=== PATIENT | male | born 1965 | race African-American/Black ===

== ENCOUNTER 2017-10-28 05:36 | Inpatient (IN) | payer MEDICAID ==
[~2017-10-28] VITALS: Ht 165.1 cm; Wt 95.2 kg
[2017-10-28] VITALS (16 sets, daily range): BP systolic 116–183; BP diastolic 70–103; BMI 26.6; BMI 26.7
--- NOTE | ~2017-10-28 | HP ---
PATIENT: MATT NAIDU MEDICAL RECORD: [id number] ACCOUNT: [id number] LOCATION:[facility] D.2308 : 63 ADMISSION DATE: 10/28/17 HISTORY AND PHYSICAL EXAMINATION HISTORY OF PRESENT ILLNESS: The patient has an esophageal sphincter that is hypertonic and suspicious for achalasia. The patient has dysphagia at the level of the cricopharyngeus. He is here for balloon dilation of the lower esophageal sphincter as this is currently unavailable at the [facility] unit. I performed an upper endoscopy. I felt that bougie dilation of this tight stricture would perhaps predispose the patient to have an esophageal perforation. He describes volume reflux type symptoms. He states that despite the omeprazole, he regurgitates up in the back of his throat. He describes some aspiration type symptoms. He states that the food comes out through his nose as well. This may require an antireflux procedure; however, it may be that the food material is not passing through this tight strictured area, so esophageal dilation may improve this reflux of solid and liquid food material. ALLERGIES: No known drug allergies. HOME MEDICINES: Metoprolol, chlorthalidone, omeprazole, albuterol, amlodipine, statins as well as Cozaar. REVIEW OF SYSTEMS: Negative for hepatitis C. Negative for HIV. Negative for diabetes or thyroid problems. PAST MEDICAL AND SURGICAL HISTORY: Asthma, hypertension, gastroesophageal reflux and hyperlipidemia. PHYSICAL EXAMINATION: GENERAL: The patient does not appear acutely ill. He does not appear chronically ill. VITAL SIGNS: Reviewed. EARS: External ears appear normal. EYES: Extraocular movements are intact. NECK: Trachea is midline. CHEST: No intercostal retractions. PULMONARY: Nonlabored and no stridor. IMPRESSION: 1. Volume reflux symptoms. 2. Distal esophageal stricture, suspicious for achalasia. PLAN: EGD with esophageal dilation. TRANSINT:[id number] Voice Confirmation ID: [id number] DOCUMENT ID: [id number] HISTORY AND PHYSICAL [id number] MATT NAIDU, TALYA GRIFFIN at 1746 CC: FIGUEROA GONZALEZ APN and LUZ COLORADO [id number] DICTATION DATE: 10/28/17 0801 CASE MONITOR: 10/28/17 1009 ADM IN [place] [id number] [place], [place] [id number]
--- NOTE | ~2017-10-28 | CN ---
PATIENT NAME:MATT NAIDU MEDICAL RECORD: [id number] : 63 LOCATION:[facility].2308 ADMIT DATE: 10/28/17 ACCOUNT: [id number] CONSULTING PHYSICIAN: TONY GARCIA MD REFERRING PHYSICIAN: TALYA PEREIRA MD DATE OF CONSULTATION: 10/28/2017 CONSULT REQUESTING PHYSICIAN: Talya Pereira MD REASON FOR CONSULTATION: Vent management, spontaneous pneumothorax, aspiration pneumonia. HISTORY OF PRESENT ILLNESS: Mr. Naidu is a 51-year-old gentleman who underwent esophageal sphincter dilatation today. The esophagus was full of food. The patient vomited and he aspirated at the same time. Bronchoscopy was done to clear the food material from the trachea and bronchial tree. The patient was extubated, but reintubated. He also having a spontaneous pneumothorax on the right side. A chest tube was placed by Dr. Pereira. Now, the patient is orally intubated and sedated. History was obtained by talking to Dr. Pereira as well as reviewing the patient's chart and nursing notes. REVIEW OF SYSTEMS: The detail not obtainable. PAST MEDICAL HISTORY: 1. Hypertension. 2. Asthma. 3. Gastroesophageal reflux disease. 4. Esophageal sphincter. 5. Bipolar disorder and depression. PAST SURGICAL HISTORY: He is now status post thoracotomy chest tube placement and esophageal dilatation. ALLERGIES: No known drug allergy. MEDICATIONS: On Band Metrics is reviewed. PERSONAL AND SOCIAL HISTORY: The patient has never smoked. He is a nondrinker. FAMILY HISTORY: Significant for cancer and hypertension in his parents. PHYSICAL EXAMINATION: GENERAL: Now, the patient is orally intubated and sedated. VITAL SIGNS: Blood pressure 149/102, pulse is 94, respirations 19, temperature 97.9, SpO2 is 98%. He is on assist control 40% oxygen, mechanical ventilation, tidal volume of 500. HEENT: Conjunctivae are pink. Sclerae are not icteric. NECK: Neck is supple, no JVD. CHEST: The chest excursion is minimal on both. There are bibasilar crackles. There are right-sided chest tube placement. HEART: Rhythm regular, normal sound, no murmur. ABDOMEN: Abdomen is soft, bowel sounds present. No hepatosplenomegaly. RECTAL: Deferred. EXTREMITIES: No cyanosis, no clubbing, no pedal edema. SKIN: The skin is warm, normal turgor. CONSULT REPORT [id number] MATT NAIDU CENTRAL NERVOUS SYSTEM: The patient is orally intubated and sedated. There are no obvious cranial nerve abnormality. CHEST RADIOGRAPH: There is large right-sided pneumothorax. There is bilateral interstitial infiltrates. On repeat chest radiograph, there is a chest tube in place, there are bilateral increased interstitial markings. IMPRESSION: 1. Acute hypoxic hypercapnic respiratory failure. 2. Respiratory acidosis. 3. Asthma exacerbation. 4. Right spontaneous pneumothorax, status post chest tube placement. 5. Gastroesophageal reflux disease. 6. Esophageal sphincter with dysphagia. RECOMMENDATIONS: 1. We will continue the mechanical ventilation, adjust the setting. No PEEP. Change the mode to SIMV. 2. Chest tube management per Dr. Pereira. 3. Continue Zosyn IV. Start him on albuterol, ipratropium nebulizer, Brovana and budesonide nebulizer. 4. I will hold on steroid. 5. Protonix IV. 6. Propofol for sedation. 7. Follow up labs and chest radiograph, will wean the patient when stable. Dr. Pereira, thank you for involving me in the care of Mr. Naidu. The critical care time is 45 minutes. TRANSINT:[id number] Voice Confirmation ID: [id number] DOCUMENT ID: [id number] TONY GARCIA MD at 1806 CC: [id number] DICTATION DATE: 10/28/17 1455 GUEST RELATIONS RECEPTIONIST: 10/28/17 1535 ADM IN [place] [address] [place] [address]
--- NOTE | ~2017-10-28 | OP ---
PATIENT NAME: MATT NAIDU MEDICAL RECORD: [id number] :63 LOCATION:[facility] D.2308 ADMISSION DATE:10/28/17 SURGEON: TALYA PEREIRA MD DATE OF OPERATION: 10/28/2017 PREOPERATIVE DIAGNOSIS: Tension pneumothorax, right. POSTOPERATIVE DIAGNOSES: Tension pneumothorax, right. PROCEDURE: Emergent 28-Spanish chest tube. SURGEON: Talya Pereira MD BULL RIVETER: None. BLOOD LOSS: Minimal. ANESTHESIA: General. COMPLICATIONS: None. Consent could not be obtained from this patient. The patient was very agitated in the GI lab. I was fearful that the needle decompression of the right hemithorax might lead to a lung injury or due to great vessel injury and due to the fact that the patient was very combative, very strong, and it was taken several people to restrain him. DESCRIPTION OF PROCEDURE: He was conveyed emergently to operating room #3. General anesthesia was induced by the anesthesia staff. The right neck was sterilely prepped and draped. A transverse incision was accomplished in the mid axillary line at approximately the level of the 7th intercostal space. I then bluntly dissected up over a rib. There was a gush of air. I then advanced a 28-Spanish chest tube over a trocar. The chest tube was then sutured in place with a 2-0 nylon. Another 2-0 nylon was placed in a horizontal mattress fashion around the chest tube insertion site as a closure suture. This closure suture was then applied to the chest tube with bone wax. We then connected the chest tube tubing. The patient was then conveyed to the intensive care unit while being mechanically ventilated. TRANSINT:[id number] Voice Confirmation ID: [id number] DOCUMENT ID: [id number] 10/28/2017 Stacy Salazar APN, [facility] [place] [facility], fax [phone] TALYA PEREIRA MD at 1745 CC: STACY SALAZAR APN [id number] DICTATION DATE: 10/28/17 1125 ARTICULATION OFFICER: 10/28/17 1219 [place] [address]
--- NOTE | ~2017-10-28 | DS ---
PATIENT:MATT NAIDU :63 MEDICAL RECORD: [id number] DISCHARGE SUMMARY ADMISSION DATE: 10/28/17 DISCHARGE DATE: 11/19/17 PRINCIPAL DIAGNOSIS: Aspiration pneumonia. PRINCIPAL PROCEDURES: 1. EGD. 2. Bronchoscopy with bronchoalveolar lavage. 3. Esophagoscopy with placement of esophageal stent under fluoroscopy. OTHER DIAGNOSES: Should include repeat bronchoscopy, also iatrogenic right pneumothorax, ventilatory failure requiring mechanical ventilation, gastroesophageal reflux, achalasia, and atrial fibrillation. HOSPITAL COURSE: The patient was to undergo evaluation of achalasia. He underwent an EGD. During the EGD, the patient was found to have a very tight esophageal sphincter. This was traversed and the EGD was completed. Upon withdrawal, the patient aspirated a large amount of noodles that were present in this very dilated esophagus. He underwent emergent bronchoscopy with removal of the food contents. He required mechanical ventilation. It took a while to get him off of the ventilator. Prior to extubating him, I knew that we needed some way to deal with his secretions in some way, so that he could eat food. We tried to get hold of family members and we were unable to do so. We felt that this procedure was really very necessary if he was going to survive and be able to eat. An esophageal stent was placed. He underwent placement of this partially covered stent. He was extubated. After extubation, he complained of regurgitation as well as reflux. This improved with proton pump inhibitors as well as with GI cocktail. I did obtain a barium swallow. This revealed that the contrast material did enter the stomach and did pass into the small bowel and therefore, he is not regurgitating all of the food. My recommendation is that he be kept on either a pureed diet, soft diet or a liquid diet. He is to straight up when he is eating. He needs to return to see me in about 3 weeks. He does not need to see me in the office, but he does need to be scheduled for an EGD with retrieval of the esophageal stent. At the same time, I am going to plan to perform an intramuscular injection of Botox into the lower esophageal sphincter. He may ultimately require an esophagectomy. I think that the next step after removal of the stent is going to be a laparoscopic Heller myotomy with a Dada fundoplication. TRANSINT:[id number] Voice Confirmation ID: [id number] DOCUMENT ID: [id number] TALYA PEREIRA MD at 1842 CC: [id number] DICTATION DATE: 11/19/17 1420 DRESSAGE JUDGE: 11/19/17 1439 DIS IN 11/19/17 [place] [id number] [place] [id number]
--- NOTE | ~2017-10-28 | PRO ---
PATIENT:MATT YAN MEDICAL RECORD: [id number] : 63 LOCATION:D.[facility] D.2308 ADMISSION DATE: 10/28/17 PROCEDURE PERFORMED BY: TONY GARCIA MD DATE OF PROCEDURE: 10/29/2017 PROCEDURE: Fiberoptic bronchoscopy. INDICATION: Mr. Yan is a 51-year-old gentleman, who had aspirated yesterday and today the chest x-ray showed bilateral infiltrate. Fiberoptic bronchoscopy carried out to clear any mucus plugging as well as to get specimen for culture and sensitivity. PROCEDURE IN DETAIL: The fiberoptic bronchoscope using the disposable, the bronchoscope was passed easily through the ET tube. The mayo was sharp. There were thick yellowish secretions in the right upper lobe, right middle lobe, right lower lobe segments. There were also thick yellowish secretions in the left main bronchus, left upper lobe, lingula, and left lower lobe. Washing was obtained and sent for routine culture and sensitivity, AFB and fungus and cytology. Overall, the patient tolerated the procedure very well. TRANSINT:[id number] Voice Confirmation ID: [id number] DOCUMENT ID: [id number] TONY GARCIA MD at 1806 CC: [id number] DICTATION DATE: 10/29/17 1228 PAYROLL AND BENEFITS ANALYST: 10/29/17 1303 [place] [address]
--- NOTE | ~2017-10-28 | EC ---
PATIENT:MATT NAIDU DATE OF SERVICE: 10/28/17 SEX: M MEDICAL RECORD: [id number] DATE OF : 63 LOCATION:[facility] AGE OF PATIENT: 51 ADMISSION DATE: 10/28/17 REFERRING PHYSICIAN: INTERPRETING PHYSICIAN: ALBINA NIEVES MD ECHOCARDIOGRAM REPORT ECHO CHARGES 4 ECHO COMPLETE Date: 11/03 CLINICAL DIAGNOSIS: NEW ONSET A-FIB ECHOCARDIOGRAPHIC MEASUREMENTS (adult normal given) AC root (d.<3.7cm) 3.1 cm LV Septum d (<1.2 cm> 1.5 cm Valve Excursion 1.9 cm LV Septum (systole) 2.3 cm Left Atria (s.<4.0cm> 3.8 cm LVPW d(<1.2cm) 1.9 cm RV (d.<2.3cm) 2.3 cm LVPW (sytole) 2.2 cm LV diastole(<5.6CM) 4.0 cm MV E-F(>70mm/sec) cm LV systole 1.8 cm LVOT Diameter 1.8 cm MV exc.(>10mm) cm Est.ejection fraction (50-75%) % DOPPLER: LVIT cm/sec A cm/sec E 105 cm/sec LA cm/sec RVSP 17.0 mmHg LVOT 95.0 cm/sec AOP1/2T m/s Asc. Ao 139 cm/sec RVOT 64.0 cm/sec RA cm/sec PA 95.0 cm/sec AV Gradient Peak 7.7 mmHg AV Mean 4.0 mmHg AV Area 1.7 cm MV Gradient Peak 5.4 mmHg MV Mean 1.2 mmHg MV Area cm COMMENTS: Back Gray Cloth Washer: Sigifredo RENDONOE Cloth Examiner: [place] TAPE# PACS Pericardial Effusion N DATE OF SERVICE: PROCEDURE: Transthoracic echocardiogram. FINDINGS: 1. There is moderate left ventricular hypertrophy. Ejection fraction is hyperdynamic at 65% to 70%. 2. The left atrium is normal. 3. The aortic valve is normal. 4. The mitral valve has [id number] mitral regurgitation. ECHOCARDIOGRAM REPORT [id number] MATT NAIDU 5. The tricuspid valve is normal. RVSP is normal to low. 6. The right ventricle and right atrium are normal size, structure, and function. 7. The pulmonic valve is normal with trace pulmonic insufficiency. 8. The pericardium is normal. CONCLUSION: Other than atrial dysrhythmia, the patient's echocardiogram shows normal function with evidence of moderate left ventricular hypertrophy consistent with hypertensive heart disease. TRANSINT:[id number] Voice Confirmation ID: [id number] DOCUMENT ID: [id number] ALBINA NIEVES MD at 0907 CC: [id number] DICTATION DATE: 11/04/17817 MEMBER SERVICE SPECIALIST: 11/04/17 0828 ADM IN [place] [id number] [place] [address]
--- NOTE | ~2017-10-28 | OP ---
PATIENT NAME: MATT NAIDU MEDICAL RECORD: [id number] :63 LOCATION:.[facility] D.2308 ADMISSION DATE:10/28/17 SURGEON: TALYA PEREIRA MD DATE OF OPERATION: 10/28/2017 PREOPERATIVE DIAGNOSIS: History of tight esophageal stricture, rule out achalasia. POSTOPERATIVE DIAGNOSES: 1. History of tight esophageal stricture, rule out achalasia with large amount of retained food material within a dilated esophagus. 2. Prepyloric moderate gastritis with erosions. 3. Aspiration of esophageal contents during the procedure with food pneumonitis. 4. Very swollen epiglottis indicating some degree of chronic aspiration. PROCEDURES: 1. Esophagogastroduodenoscopy with antral biopsies. 2. Esophageal dilation to 34-Bahraini with a 3D catheter balloon. 3. Emergency bronchoscopy with bronchoalveolar lavage. ANESTHESIA: TIVA with conversion to general anesthesia. COMPLICATIONS: Aspiration pneumonitis. INDICATIONS: The risks, possible complications, and alternatives to the procedure were explained to the patient. He elects to proceed. I saw the patient preoperatively and discussed his condition. I had seen him out at the [facility] and had performed an EGD on him in the past. I found a very tight esophageal stricture and this was very concerning for achalasia. My plan initially was to perform esophageal dilation to see if he had improvement in his symptoms with just esophageal dilation. Due to the very tight stricture, he would have been an increased risk for esophageal perforation had we performed a bougienage of the tight stricture. Therefore, I recommended that he have his esophageal stricture dilated under direct vision here in the hospital. In speaking to him preoperatively, the patient states that at night he regurgitates food material or refluxes the food material all the way up into the back of the throat where he sometimes will cough, which indicates to me that he has some degree of aspiration at night. Additionally, he states that sometimes noodles come out through his nose. ENDOSCOPIC COURSE: The patient was conveyed to the endoscopy suite electively on 10/28/2017. IV sedation was induced by the anesthesia staff. A bite block was inserted. A gastroscope was inserted into the mouth. It was advanced easily into the hypopharynx. A swollen epiglottis was noted. I intubated the esophagus easily. The esophagus was dilated. There was a large amount of food material in the esophagus and this actually did appear to be noodles as well. I was able to advance down through the esophageal stricture, which was tight. I intubated the stomach as well as the duodenum and advanced to the third portion of the duodenum. I then withdrew. Antral biopsies were obtained with the cold endoscopic biopsy forceps. I then withdrew into the cardia of the stomach. I advanced a balloon dilator. My hope was to dilate the esophageal stricture and then push some of the food in the esophagus down into the stomach. During the dilation process to 54-Bahraini, the patient aspirated. I discontinued the EGD OPERATIVE REPORT [id number] MATT NAIDU immediately. We sucked out the food contents in the patient's mouth and hypopharynx. He was intubated by the anesthesia staff. A nasotracheal suction was performed. A bite block was then reinserted. I then advanced down into the esophagus and stomach. I advanced through the catheter balloon again and performed a dilation of the distal esophagus to 54-Bahraini. The balloon dilator was then removed. I was able to push some of the food material down into the stomach. The anesthesia staff then changed out the endotracheal tube for a larger tube. Through this larger tube, I advanced a bronchoscope. I was able to identify minimal bronchitis; however, there was a good bit of food material both in the right and left lungs. Bronchoalveolar lavage was performed with normal saline. All the segmental bronchi were then completely cleared of any particulate food material. The bronchoscope was then removed. As the patient was waking up, he was extubated. Chest x-ray revealed a large pneumothorax on the right. I am not sure whether that was due to the bagging process due to changing the endotracheal tube out or whether it was due to the therapeutic bronchoscopy. The patient was very agitated. He is large and very strong. We were unable to restrain him. I was fearful that needle decompression of the right chest might lead to a vascular injury. He was transported to the operating room immediately was converted to general anesthesia. This is dictated separately. TRANSINT:[id number] Voice Confirmation ID: [id number] DOCUMENT ID: [id number] 10/28/2017 Stacy Salazar APN, [facility], fax [phone] TALYA PEREIRA MD at 1954 CC: STACY SALAZAR APN [id number] DICTATION DATE: 10/28/17 1044 ACOUSTICAL TILE DRILL PRESS OPERATOR: 10/28/17 1225 ADM IN [facility] [address] [place] [id number]
[2017-10-28] MEDS ORDERED: LOTREL 10-40 M1 EACH PO (06:56)
[2017-10-28] MEDS ORDERED: ARTIFICIAL TEAR15 ML (06:57)
[2017-10-28] MEDS ORDERED: LIPITOR20 MG PO (06:57)
[2017-10-28] MEDS ORDERED: CHLORTHALIDONE25 MG PO (06:57)
[2017-10-28] MEDS ORDERED: COZAAR100 MG PO (06:58)
[2017-10-28 06:59] LABS: BASOPHILS 0.3 % (0-2); EOSINOPHILS 3.6 % (0-7); HEMATOCRIT 39.2 % (42.0-54.0); HEMOGLOBIN 13.6 g/dL (13.5-17.5); IMMATURE GRANULOCYTES 0.1 % (0-5); LYMPHOCYTES 20.7 % (15-50); MCH 30.9 pg (26.0-34.0); MCHC 34.7 g/dL (31.0-37.0); MCV 89.1 fL (80.0-100.0); MEAN PLATELET VOLUME 10.2 fL (7.4-10.4); MONOCYTES 6.5 % (2-11); NEUTROPHILS 68.8 % (40-80); PLATELET COUNT 214 10x3/uL (130-400); RDW 13.1 % (11.5-14.5)
[2017-10-28] MEDS ORDERED: OMEPRAZOLE20 M1 PO (06:59)
[2017-10-28] MEDS ORDERED: METOPROLOL TAR100 M1 (06:59)
[2017-10-28] MEDS ORDERED: VENTOLIN HFA18 GM INH (07:00)
[2017-10-28 07:13] LABS: CALC OSMOLALITY 283 mosm/kg (275-300); CALCIUM 8.2 mg/dL (8.5-10.1); CARBON DIOXIDE 26.8 mmol/L (21.0-32.0); CHLORIDE - SERUM 109 mmol/L (98-107); CREATININE - SERUM 0.8 mg/dL (0.6-1.3); GLUCOSE 96 mg/dL (74-106); POTASSIUM - SERUM 3.8 mmol/L (3.5-5.1); SODIUM 143 mmol/L (136-145); UREA NITROGEN 11 mg/dL (7-18); eGFR NON AFRICAN AMERICAN > 90 mL/min (90-120)
[2017-10-29] VITALS (25 sets, daily range): BP systolic 98–178; BP diastolic 57–472; Ht 165.1 cm; Wt 95.2 kg
[2017-10-29 06:55] LABS: BASOPHILS 0.1 % (0-2); EOSINOPHILS 0 % (0-7); HEMATOCRIT 37.5 % (42.0-54.0); HEMOGLOBIN 12.8 g/dL (13.5-17.5); IMMATURE GRANULOCYTES 0.4 % (0-5); LYMPHOCYTES 3.3 % (15-50); MCH 30.3 pg (26.0-34.0); MCHC 34.1 g/dL (31.0-37.0); MCV 88.9 fL (80.0-100.0); MEAN PLATELET VOLUME 10.8 fL (7.4-10.4); MONOCYTES 3.8 % (2-11); NEUTROPHILS 92.4 % (40-80); PLATELET COUNT 209 10x3/uL (130-400); RBC 4.22 10x6/uL (4.20-6.10); RDW 13.6 % (11.5-14.5); WBC 18.5 10x3/uL (4.8-10.8)
[2017-10-29 07:29] LABS: ANION GAP 15.5 mmol/L (8-16); CARBON DIOXIDE 26.2 mmol/L (21.0-32.0); POTASSIUM - SERUM 3.7 mmol/L (3.5-5.1)
[2017-10-29 07:30] LABS: CREATININE - SERUM 1.1 mg/dL (0.6-1.3)
[2017-10-30] VITALS (23 sets, daily range): BP systolic 100–154; BP diastolic 62–105
[2017-10-30 04:15] LABS: BASOPHILS 0.1 % (0-2); EOSINOPHILS 0.4 % (0-7); HEMATOCRIT 32.8 % (42.0-54.0); HEMOGLOBIN 11.2 g/dL (13.5-17.5); IMMATURE GRANULOCYTES 0.3 % (0-5); LYMPHOCYTES 5.5 % (15-50); MCH 31.3 pg (26.0-34.0); MCHC 34.1 g/dL (31.0-37.0); MEAN PLATELET VOLUME 10.5 fL (7.4-10.4); MONOCYTES 6.4 % (2-11); NEUTROPHILS 87.3 % (40-80); PLATELET COUNT 173 10x3/uL (130-400); RBC 3.58 10x6/uL (4.20-6.10); RDW 13.9 % (11.5-14.5)
[2017-10-30 04:18] LABS: WBC 11.7 10x3/uL (4.8-10.8)
[2017-10-30 04:19] LABS: MCV 91.6 fL (80.0-100.0)
[2017-10-30 18:10] LABS: AFB SPECIMEN PROCESSING Concentration (())
[2017-10-31] VITALS (25 sets, daily range): BP systolic 112–151; BP diastolic 69–97
[2017-10-31 03:51] LABS: BASOPHILS 0.2 % (0-2); EOSINOPHILS 0.4 % (0-7); HEMATOCRIT 34.9 % (42.0-54.0); HEMOGLOBIN 11.6 g/dL (13.5-17.5); IMMATURE GRANULOCYTES 0.4 % (0-5); MCH 30.1 pg (26.0-34.0); MCHC 33.2 g/dL (31.0-37.0); MCV 90.4 fL (80.0-100.0); MEAN PLATELET VOLUME 10.5 fL (7.4-10.4); MONOCYTES 7.8 % (2-11); NEUTROPHILS 82.2 % (40-80); PLATELET COUNT 178 10x3/uL (130-400); RBC 3.86 10x6/uL (4.20-6.10); RDW 14.1 % (11.5-14.5); WBC 10.4 10x3/uL (4.8-10.8)
[2017-10-31 06:53] LABS: ALBUMIN 1.9 g/dL (3.4-5.0); ALKALINE PHOSPHATASE 67 U/L (46-116); ALT (SGPT) 13 U/L (10-68); BILIRUBIN - TOTAL 0.21 mg/dL (0.2-1.3); CALCIUM 8.3 mg/dL (8.5-10.1); CHLORIDE - SERUM 112 mmol/L (98-107); CREATININE - SERUM 0.9 mg/dL (0.6-1.3); GLUCOSE 122 mg/dL (74-106); PROTEIN - SERUM 6.4 g/dL (6.4-8.2); SODIUM 146 mmol/L (136-145); eGFR NON AFRICAN AMERICAN > 90 mL/min (90-120)
[2017-10-31 06:55] LABS: CALC OSMOLALITY 288 mosm/kg (275-300); UREA NITROGEN 4 mg/dL (7-18)
[2017-10-31 11:22] LABS: FUNGUS STAIN Final report (())
[2017-11-01] VITALS (24 sets, daily range): BP systolic 115–172; BP diastolic 72–105
[2017-11-01 05:17] LABS: BASOPHILS 0.1 % (0-2); EOSINOPHILS 0 % (0-7); HEMATOCRIT 33.9 % (42.0-54.0); HEMOGLOBIN 11.5 g/dL (13.5-17.5); IMMATURE GRANULOCYTES 0.4 % (0-5); LYMPHOCYTES 5.9 % (15-50); MCH 30.4 pg (26.0-34.0); MCHC 33.9 g/dL (31.0-37.0); MCV 89.7 fL (80.0-100.0); MEAN PLATELET VOLUME 11.1 fL (7.4-10.4); MONOCYTES 5.3 % (2-11); NEUTROPHILS 88.3 % (40-80); PLATELET COUNT 195 10x3/uL (130-400); RBC 3.78 10x6/uL (4.20-6.10); RDW 13.8 % (11.5-14.5); WBC 11.4 10x3/uL (4.8-10.8)
[2017-11-02] VITALS (24 sets, daily range): BP systolic 98–171; BP diastolic 62–100
[2017-11-02 03:43] LABS: BASOPHILS 0.1 % (0-2); EOSINOPHILS 0 % (0-7); HEMATOCRIT 32.6 % (42.0-54.0); HEMOGLOBIN 11.3 g/dL (13.5-17.5); IMMATURE GRANULOCYTES 0.4 % (0-5); MCH 31.8 pg (26.0-34.0); MCHC 34.7 g/dL (31.0-37.0); MEAN PLATELET VOLUME 11.1 fL (7.4-10.4); MONOCYTES 5.2 % (2-11); NEUTROPHILS 88.3 % (40-80); PLATELET COUNT 206 10x3/uL (130-400); RBC 3.55 10x6/uL (4.20-6.10); WBC 11.2 10x3/uL (4.8-10.8)
[2017-11-02 03:50] LABS: MCV 91.8 fL (80.0-100.0)
[2017-11-02 21:11] LABS: ALBUMIN 1.9 g/dL (3.4-5.0); ALKALINE PHOSPHATASE 64 U/L (46-116); ALT (SGPT) 20 U/L (10-68); BILIRUBIN - TOTAL 0.24 mg/dL (0.2-1.3); CALC OSMOLALITY 293 mosm/kg (275-300); CALCIUM 8.2 mg/dL (8.5-10.1); CARBON DIOXIDE 27.7 mmol/L (21.0-32.0); CHLORIDE - SERUM 112 mmol/L (98-107); CKMB 0.7 U/L (0.0-3.6); CREATINE KINASE 214 UL (21-232); CREATININE - SERUM 0.9 mg/dL (0.6-1.3); GLUCOSE 148 mg/dL (74-106); POTASSIUM - SERUM 3.5 mmol/L (3.5-5.1); PROTEIN - SERUM 6.9 g/dL (6.4-8.2); SODIUM 146 mmol/L (136-145); UREA NITROGEN 13 mg/dL (7-18); eGFR NON AFRICAN AMERICAN > 90 mL/min (90-120)
[2017-11-02 21:13] LABS: TROPONIN-I < 0.017 ng/mL (0.000-0.060)
[2017-11-03] VITALS (31 sets, daily range): BP systolic 80–179; BP diastolic 53–117
[2017-11-03 03:42] LABS: BASOPHILS 0 % (0-2); EOSINOPHILS 0 % (0-7); HEMOGLOBIN 11.5 g/dL (13.5-17.5); IMMATURE GRANULOCYTES 1.2 % (0-5); LYMPHOCYTES 7.8 % (15-50); MCH 30.5 pg (26.0-34.0); MCHC 33.8 g/dL (31.0-37.0); MCV 90.2 fL (80.0-100.0); MEAN PLATELET VOLUME 10.5 fL (7.4-10.4); MONOCYTES 6.9 % (2-11); NEUTROPHILS 84.1 % (40-80); PLATELET COUNT 233 10x3/uL (130-400); RBC 3.77 10x6/uL (4.20-6.10); WBC 9.9 10x3/uL (4.8-10.8)
[2017-11-03 03:55] LABS: CARBON DIOXIDE 24.9 mmol/L (21.0-32.0); CHLORIDE - SERUM 106 mmol/L (98-107); CREATININE - SERUM 0.9 mg/dL (0.6-1.3); POTASSIUM - SERUM 3.1 mmol/L (3.5-5.1); SODIUM 137 mmol/L (136-145); UREA NITROGEN 11 mg/dL (7-18); eGFR NON AFRICAN AMERICAN > 90 mL/min (90-120)
[2017-11-03 03:59] LABS: CALC OSMOLALITY 300 mosm/kg (275-300); CALCIUM 6.2 mg/dL (8.5-10.1); GLUCOSE 602 mg/dL (74-106)
[2017-11-03 07:08] LABS: ALBUMIN 1.9 g/dL (3.4-5.0); ALKALINE PHOSPHATASE 66 U/L (46-116); ALT (SGPT) 25 U/L (10-68); BILIRUBIN - TOTAL 0.27 mg/dL (0.2-1.3); CARBON DIOXIDE 26.4 mmol/L (21.0-32.0); CHLORIDE - SERUM 110 mmol/L (98-107); CREATININE - SERUM 0.9 mg/dL (0.6-1.3); POTASSIUM - SERUM 3.4 mmol/L (3.5-5.1); PROTEIN - SERUM 7.2 g/dL (6.4-8.2); SODIUM 145 mmol/L (136-145); UREA NITROGEN 13 mg/dL (7-18); eGFR NON AFRICAN AMERICAN > 90 mL/min (90-120)
[2017-11-03 07:11] LABS: CALC OSMOLALITY 295 mosm/kg (275-300); CALCIUM 8.1 mg/dL (8.5-10.1); GLUCOSE 216 mg/dL (74-106)
[2017-11-04] VITALS (24 sets, daily range): BP systolic 111–159; BP diastolic 74–108
[2017-11-04 06:04] LABS: BASOPHILS 0.1 % (0-2); EOSINOPHILS 0 % (0-7); HEMATOCRIT 36.3 % (42.0-54.0); HEMOGLOBIN 12.2 g/dL (13.5-17.5); IMMATURE GRANULOCYTES 2.2 % (0-5); LYMPHOCYTES 10.3 % (15-50); MCH 30.2 pg (26.0-34.0); MCHC 33.6 g/dL (31.0-37.0); MCV 89.9 fL (80.0-100.0); MEAN PLATELET VOLUME 10.4 fL (7.4-10.4); MONOCYTES 8.2 % (2-11); NEUTROPHILS 79.2 % (40-80); PLATELET COUNT 256 10x3/uL (130-400); RBC 4.04 10x6/uL (4.20-6.10); RDW 13.9 % (11.5-14.5); WBC 10.8 10x3/uL (4.8-10.8)
[2017-11-04 06:11] LABS: CALCIUM 7.8 mg/dL (8.5-10.1); CARBON DIOXIDE 25.9 mmol/L (21.0-32.0); CHLORIDE - SERUM 112 mmol/L (98-107); CREATININE - SERUM 0.9 mg/dL (0.6-1.3); MAGNESIUM - SERUM 2.4 mg/dL (1.8-2.4); SODIUM 146 mmol/L (136-145); UREA NITROGEN 16 mg/dL (7-18); eGFR NON AFRICAN AMERICAN > 90 mL/min (90-120)
[2017-11-04 06:22] LABS: CALC OSMOLALITY 293 mosm/kg (275-300); GLUCOSE 143 mg/dL (74-106); POTASSIUM - SERUM 3.6 mmol/L (3.5-5.1)
[2017-11-05] VITALS (24 sets, daily range): BP systolic 100–149; BP diastolic 64–96
[2017-11-05 05:35] LABS: BASOPHILS 0.1 % (0-2); EOSINOPHILS 0 % (0-7); HEMATOCRIT 37.2 % (42.0-54.0); HEMOGLOBIN 12.7 g/dL (13.5-17.5); IMMATURE GRANULOCYTES 2.2 % (0-5); LYMPHOCYTES 8.8 % (15-50); MCH 30.5 pg (26.0-34.0); MCHC 34.1 g/dL (31.0-37.0); MCV 89.2 fL (80.0-100.0); MEAN PLATELET VOLUME 10.4 fL (7.4-10.4); MONOCYTES 6.6 % (2-11); NEUTROPHILS 82.3 % (40-80); PLATELET COUNT 249 10x3/uL (130-400); RBC 4.17 10x6/uL (4.20-6.10); RDW 13.8 % (11.5-14.5); WBC 9.2 10x3/uL (4.8-10.8)
[2017-11-05 05:41] LABS: CALC OSMOLALITY 287 mosm/kg (275-300); CALCIUM 7.7 mg/dL (8.5-10.1); CARBON DIOXIDE 24.9 mmol/L (21.0-32.0); CHLORIDE - SERUM 111 mmol/L (98-107); CREATININE - SERUM 0.7 mg/dL (0.6-1.3); GLUCOSE 136 mg/dL (74-106); MAGNESIUM - SERUM 2.3 mg/dL (1.8-2.4); PHOSPHOROUS 2.8 mg/dL (2.5-4.9); POTASSIUM - SERUM 3.8 mmol/L (3.5-5.1); PRE-ALBUMIN 31.3 mg/dL (18.0-35.7); SODIUM 143 mmol/L (136-145); UREA NITROGEN 16 mg/dL (7-18); eGFR NON AFRICAN AMERICAN > 90 mL/min (90-120)
[2017-11-05 15:26] LABS: FUNGUS STAIN Final report (())
[2017-11-05 15:26] LABS: FUNGUS CULTURE RESULT 1 Candida dubliniensis (())
[2017-11-05 19:12] LABS: AFB SPECIMEN PROCESSING Concentration (())
[2017-11-06] VITALS (23 sets, daily range): BP systolic 108–146; BP diastolic 69–91
[2017-11-06 04:22] LABS: BASOPHILS 0 % (0-2); EOSINOPHILS 0 % (0-7); HEMATOCRIT 34.2 % (42.0-54.0); HEMOGLOBIN 11.5 g/dL (13.5-17.5); LYMPHOCYTES 6.5 % (15-50); MCH 30.2 pg (26.0-34.0); MCHC 33.6 g/dL (31.0-37.0); MCV 89.8 fL (80.0-100.0); MEAN PLATELET VOLUME 10.1 fL (7.4-10.4); MONOCYTES 6.7 % (2-11); NEUTROPHILS 84.8 % (40-80); PLATELET COUNT 285 10x3/uL (130-400); RBC 3.81 10x6/uL (4.20-6.10); RDW 13.5 % (11.5-14.5)
[2017-11-06 04:27] LABS: WBC 13.2 10x3/uL (4.8-10.8)
[2017-11-06 04:34] LABS: CALC OSMOLALITY 288 mosm/kg (275-300); CALCIUM 7.8 mg/dL (8.5-10.1); CARBON DIOXIDE 27.5 mmol/L (21.0-32.0); CHLORIDE - SERUM 110 mmol/L (98-107); CREATININE - SERUM 0.7 mg/dL (0.6-1.3); GLUCOSE 171 mg/dL (74-106); MAGNESIUM - SERUM 2.1 mg/dL (1.8-2.4); POTASSIUM - SERUM 3.9 mmol/L (3.5-5.1); SODIUM 142 mmol/L (136-145); UREA NITROGEN 17 mg/dL (7-18); eGFR NON AFRICAN AMERICAN > 90 mL/min (90-120)
[2017-11-07] VITALS (23 sets, daily range): BP systolic 110–181; BP diastolic 59–92
[2017-11-07 04:48] LABS: BASOPHILS 0 % (0-2); EOSINOPHILS 0.1 % (0-7); HEMATOCRIT 33.9 % (42.0-54.0); HEMOGLOBIN 11.4 g/dL (13.5-17.5); IMMATURE GRANULOCYTES 1.4 % (0-5); LYMPHOCYTES 7.9 % (15-50); MCH 30.2 pg (26.0-34.0); MCHC 33.6 g/dL (31.0-37.0); MCV 89.9 fL (80.0-100.0); MEAN PLATELET VOLUME 10.2 fL (7.4-10.4); MONOCYTES 7.5 % (2-11); NEUTROPHILS 83.1 % (40-80); PLATELET COUNT 277 10x3/uL (130-400); RBC 3.77 10x6/uL (4.20-6.10); RDW 13.3 % (11.5-14.5); WBC 14.7 10x3/uL (4.8-10.8)
[2017-11-07 05:05] LABS: CALC OSMOLALITY 288 mosm/kg (275-300); CALCIUM 7.8 mg/dL (8.5-10.1); CARBON DIOXIDE 27.3 mmol/L (21.0-32.0); CHLORIDE - SERUM 110 mmol/L (98-107); CREATININE - SERUM 0.8 mg/dL (0.6-1.3); GLUCOSE 153 mg/dL (74-106); MAGNESIUM - SERUM 2.1 mg/dL (1.8-2.4); POTASSIUM - SERUM 3.7 mmol/L (3.5-5.1); SODIUM 143 mmol/L (136-145); UREA NITROGEN 15 mg/dL (7-18); eGFR NON AFRICAN AMERICAN > 90 mL/min (90-120)
[2017-11-08] VITALS (24 sets, daily range): BP systolic 90–139; BP diastolic 46–86
[2017-11-08 06:15] LABS: CALC OSMOLALITY 291 mosm/kg (275-300); CALCIUM 7.7 mg/dL (8.5-10.1); CHLORIDE - SERUM 110 mmol/L (98-107); CREATININE - SERUM 0.7 mg/dL (0.6-1.3); GLUCOSE 144 mg/dL (74-106); POTASSIUM - SERUM 3.3 mmol/L (3.5-5.1); SODIUM 145 mmol/L (136-145); UREA NITROGEN 12 mg/dL (7-18); eGFR NON AFRICAN AMERICAN > 90 mL/min (90-120)
[2017-11-08 06:16] LABS: MAGNESIUM - SERUM 1.9 mg/dL (1.8-2.4)
[2017-11-09] VITALS (24 sets, daily range): BP systolic 90–126; BP diastolic 47–84
[2017-11-09 05:43] LABS: BASOPHILS 0.1 % (0-2); EOSINOPHILS 1.3 % (0-7); HEMATOCRIT 30.5 % (42.0-54.0); HEMOGLOBIN 9.9 g/dL (13.5-17.5); IMMATURE GRANULOCYTES 1.1 % (0-5); LYMPHOCYTES 14.5 % (15-50); MCH 29.7 pg (26.0-34.0); MCHC 32.5 g/dL (31.0-37.0); MCV 91.6 fL (80.0-100.0); MEAN PLATELET VOLUME 10.3 fL (7.4-10.4); MONOCYTES 9.6 % (2-11); NEUTROPHILS 73.4 % (40-80); PLATELET COUNT 245 10x3/uL (130-400); RBC 3.33 10x6/uL (4.20-6.10); RDW 13.4 % (11.5-14.5); WBC 14.2 10x3/uL (4.8-10.8)
[2017-11-09 05:56] LABS: CALC OSMOLALITY 283 mosm/kg (275-300); CALCIUM 7.6 mg/dL (8.5-10.1); CHLORIDE - SERUM 109 mmol/L (98-107); CREATININE - SERUM 0.7 mg/dL (0.6-1.3); GLUCOSE 108 mg/dL (74-106); SODIUM 142 mmol/L (136-145); UREA NITROGEN 13 mg/dL (7-18); eGFR NON AFRICAN AMERICAN > 90 mL/min (90-120)
[2017-11-09 06:03] LABS: POTASSIUM - SERUM 3.2 mmol/L (3.5-5.1)
[2017-11-09 08:01] LABS: MAGNESIUM - SERUM 2.2 mg/dL (1.8-2.4); PHOSPHOROUS 2.7 mg/dL (2.5-4.9)
[2017-11-10] VITALS (15 sets, daily range): BP systolic 103–126; BP diastolic 54–85
[2017-11-10 04:25] LABS: BASOPHILS 0.1 % (0-2); EOSINOPHILS 1.5 % (0-7); HEMATOCRIT 30.8 % (42.0-54.0); HEMOGLOBIN 10.2 g/dL (13.5-17.5); IMMATURE GRANULOCYTES 1.1 % (0-5); MCH 30.1 pg (26.0-34.0); MCHC 33.1 g/dL (31.0-37.0); MCV 90.9 fL (80.0-100.0); MEAN PLATELET VOLUME 9.8 fL (7.4-10.4); MONOCYTES 8.9 % (2-11); NEUTROPHILS 72.4 % (40-80); PLATELET COUNT 238 10x3/uL (130-400); RBC 3.39 10x6/uL (4.20-6.10); RDW 13.3 % (11.5-14.5); WBC 12.1 10x3/uL (4.8-10.8)
[2017-11-10 04:37] LABS: CALC OSMOLALITY 283 mosm/kg (275-300); CALCIUM 7.5 mg/dL (8.5-10.1); CARBON DIOXIDE 31.5 mmol/L (21.0-32.0); CHLORIDE - SERUM 109 mmol/L (98-107); CREATININE - SERUM 0.8 mg/dL (0.6-1.3); GLUCOSE 130 mg/dL (74-106); PHOSPHOROUS 2.7 mg/dL (2.5-4.9); POTASSIUM - SERUM 3.3 mmol/L (3.5-5.1); SODIUM 141 mmol/L (136-145); UREA NITROGEN 14 mg/dL (7-18); eGFR NON AFRICAN AMERICAN > 90 mL/min (90-120)
[2017-11-10 16:13] LABS: FUNGUS CULTURE RESULT 1 Candida dubliniensis (())
[2017-11-11] VITALS (8 sets, daily range): BP systolic 91–125; BP diastolic 51–73
[2017-11-11 06:28] LABS: BASOPHILS 0.1 % (0-2); EOSINOPHILS 1.6 % (0-7); HEMATOCRIT 29.3 % (42.0-54.0); HEMOGLOBIN 9.9 g/dL (13.5-17.5); MCH 30.7 pg (26.0-34.0); MCHC 33.8 g/dL (31.0-37.0); MCV 90.7 fL (80.0-100.0); MEAN PLATELET VOLUME 10.5 fL (7.4-10.4); MONOCYTES 11.1 % (2-11); NEUTROPHILS 68.2 % (40-80); PLATELET COUNT 235 10x3/uL (130-400); RBC 3.23 10x6/uL (4.20-6.10); RDW 13.6 % (11.5-14.5)
[2017-11-11 06:43] LABS: CALC OSMOLALITY 278 mosm/kg (275-300); CALCIUM 7.5 mg/dL (8.5-10.1); CARBON DIOXIDE 29.3 mmol/L (21.0-32.0); CHLORIDE - SERUM 106 mmol/L (98-107); CREATININE - SERUM 0.8 mg/dL (0.6-1.3); GLUCOSE 116 mg/dL (74-106); MAGNESIUM - SERUM 1.9 mg/dL (1.8-2.4); PHOSPHOROUS 3.2 mg/dL (2.5-4.9); POTASSIUM - SERUM 3.5 mmol/L (3.5-5.1); SODIUM 139 mmol/L (136-145); UREA NITROGEN 13 mg/dL (7-18); eGFR NON AFRICAN AMERICAN > 90 mL/min (90-120)
[2017-11-12 04:01] VITALS: BP 112/64
[2017-11-12 08:06] LABS: BASOPHILS 0.1 % (0-2); EOSINOPHILS 1.3 % (0-7); HEMATOCRIT 30.5 % (42.0-54.0); HEMOGLOBIN 10.2 g/dL (13.5-17.5); IMMATURE GRANULOCYTES 1.3 % (0-5); LYMPHOCYTES 17.5 % (15-50); MCH 30.6 pg (26.0-34.0); MCHC 33.4 g/dL (31.0-37.0); MCV 91.6 fL (80.0-100.0); MEAN PLATELET VOLUME 10.8 fL (7.4-10.4); MONOCYTES 10.3 % (2-11); NEUTROPHILS 69.5 % (40-80); PLATELET COUNT 241 10x3/uL (130-400); RBC 3.33 10x6/uL (4.20-6.10); RDW 14.2 % (11.5-14.5); WBC 10.9 10x3/uL (4.8-10.8)
[2017-11-12 08:18] LABS: CALC OSMOLALITY 276 mosm/kg (275-300); CALCIUM 7.7 mg/dL (8.5-10.1); CARBON DIOXIDE 26.5 mmol/L (21.0-32.0); CHLORIDE - SERUM 106 mmol/L (98-107); CREATININE - SERUM 0.9 mg/dL (0.6-1.3); GLUCOSE 82 mg/dL (74-106); MAGNESIUM - SERUM 1.9 mg/dL (1.8-2.4); PHOSPHOROUS 3.2 mg/dL (2.5-4.9); POTASSIUM - SERUM 3.5 mmol/L (3.5-5.1); SODIUM 139 mmol/L (136-145); UREA NITROGEN 13 mg/dL (7-18); eGFR NON AFRICAN AMERICAN > 90 mL/min (90-120)
[2017-11-12 08:32] VITALS: BP 119/63
[2017-11-12 12:25] VITALS: BP 100/56
[2017-11-12 15:51] VITALS: BP 93/57
[2017-11-12 20:00] VITALS: BP 95/64
[2017-11-12 23:49] VITALS: BP 119/63
[2017-11-13 04:00] VITALS: BP 119/74
[2017-11-13 07:39] LABS: BASOPHILS 0 % (0-2); EOSINOPHILS 0.5 % (0-7); HEMATOCRIT 28.2 % (42.0-54.0); HEMOGLOBIN 9.5 g/dL (13.5-17.5); IMMATURE GRANULOCYTES 0.9 % (0-5); LYMPHOCYTES 15.9 % (15-50); MCH 30.9 pg (26.0-34.0); MCHC 33.7 g/dL (31.0-37.0); MCV 91.9 fL (80.0-100.0); MEAN PLATELET VOLUME 11.5 fL (7.4-10.4); MONOCYTES 8.1 % (2-11); NEUTROPHILS 74.6 % (40-80); PLATELET COUNT 194 10x3/uL (130-400); RBC 3.07 10x6/uL (4.20-6.10); RDW 14.7 % (11.5-14.5); WBC 13.3 10x3/uL (4.8-10.8)
[2017-11-13 07:49] LABS: CALC OSMOLALITY 282 mosm/kg (275-300); CALCIUM 7.7 mg/dL (8.5-10.1); CARBON DIOXIDE 28.8 mmol/L (21.0-32.0); CHLORIDE - SERUM 107 mmol/L (98-107); CREATININE - SERUM 0.9 mg/dL (0.6-1.3); GLUCOSE 84 mg/dL (74-106); PHOSPHOROUS 3.8 mg/dL (2.5-4.9); POTASSIUM - SERUM 3.6 mmol/L (3.5-5.1); SODIUM 143 mmol/L (136-145); UREA NITROGEN 11 mg/dL (7-18); eGFR NON AFRICAN AMERICAN > 90 mL/min (90-120)
[2017-11-13 08:25] VITALS: BP 125/59
[2017-11-13 12:38] VITALS: BP 94/57
[2017-11-13 16:20] VITALS: BP 101/51
[2017-11-13 19:43] VITALS: BP 99/66
[2017-11-14] VITALS: BP 105/63
[2017-11-14 04:00] VITALS: BP 108/58
[2017-11-14 06:34] LABS: BASOPHILS 0.1 % (0-2); EOSINOPHILS 1.9 % (0-7); HEMATOCRIT 30.3 % (42.0-54.0); HEMOGLOBIN 10.1 g/dL (13.5-17.5); IMMATURE GRANULOCYTES 0.7 % (0-5); LYMPHOCYTES 14.3 % (15-50); MCH 30.8 pg (26.0-34.0); MCHC 33.3 g/dL (31.0-37.0); MCV 92.4 fL (80.0-100.0); MEAN PLATELET VOLUME 10.7 fL (7.4-10.4); MONOCYTES 5.8 % (2-11); NEUTROPHILS 77.2 % (40-80); RBC 3.28 10x6/uL (4.20-6.10); WBC 13.7 10x3/uL (4.8-10.8)
[2017-11-14 06:49] LABS: PLATELET COUNT 275 10x3/uL (130-400)
[2017-11-14 07:11] LABS: CALC OSMOLALITY 281 mosm/kg (275-300); CALCIUM 7.6 mg/dL (8.5-10.1); CARBON DIOXIDE 28.2 mmol/L (21.0-32.0); CHLORIDE - SERUM 106 mmol/L (98-107); CREATININE - SERUM 0.8 mg/dL (0.6-1.3); GLUCOSE 88 mg/dL (74-106); MAGNESIUM - SERUM 2.2 mg/dL (1.8-2.4); PHOSPHOROUS 3.3 mg/dL (2.5-4.9); SODIUM 142 mmol/L (136-145); UREA NITROGEN 13 mg/dL (7-18); eGFR NON AFRICAN AMERICAN > 90 mL/min (90-120)
[2017-11-14 07:12] LABS: POTASSIUM - SERUM 4.2 mmol/L (3.5-5.1)
[2017-11-14 20:00] VITALS: BP 90/50
[2017-11-15] VITALS: BP 94/59
[2017-11-15 05:43] VITALS: BP 93/57
[2017-11-15 08:13] VITALS: BP 99/65
[2017-11-15 11:32] VITALS: BP 93/59
[2017-11-15 19:56] VITALS: BP 109/69
[2017-11-16 04:45] VITALS: BP 123/75
[2017-11-16 08:00] VITALS: BP 103/51
[2017-11-16 12:22] VITALS: BP 105/69
[2017-11-16 16:16] VITALS: BP 109/64
[2017-11-16 19:35] VITALS: BP 98/53
[2017-11-17 04:20] VITALS: BP 90/53
[2017-11-17 08:46] VITALS: BP 137/82
[2017-11-17 12:14] VITALS: BP 104/64
[2017-11-17 16:02] VITALS: BP 117/65
[2017-11-17 21:06] VITALS: BP 95/60
[2017-11-18 00:33] VITALS: BP 112/64
[2017-11-18 04:38] VITALS: BP 124/79
[2017-11-18 08:20] VITALS: BP 104/58
[2017-11-18 13:24] VITALS: BP 93/56
[2017-11-18 15:56] VITALS: BP 88/58
[2017-11-18 21:02] VITALS: BP 111/69
[2017-11-19 00:10] VITALS: BP 124/68
[2017-11-19 04:03] VITALS: BP 1058/62
[2017-11-19 08:33] VITALS: BP 93/58
[2017-11-19 12:01] VITALS: BP 92/62
[2017-11-19 16:08] VITALS: BP 94/53
[2017-11-26 07:32] LABS: FUNGUS MYCOLOGY CULTURE Final report (())
[2017-12-02 08:16] LABS: FUNGUS MYCOLOGY CULTURE Final report (())
[2017-12-20 13:11] LABS: ACID FAST CULTURE Negative (()); ACID FAST SMEAR Negative (())
[2017-12-26 12:19] LABS: ACID FAST CULTURE Negative (()); ACID FAST SMEAR Negative (())
== END 2017-11-19 21:31 | DRG 207 ==
LOC: D.OPS 05:36 → D.ICU 10:11 → D.OPS 22:30 → D.MS 11-11 18:22 → D.SDCHOLD 11-18 16:51 → D.MS 11-18 16:54
PROVIDERS: Anesthesiology; Internal Medicine Pulmonary Disease; Surgery
PROC: 0W9930Z Drainage of Right Pleural Cavity with Drainage Device, Percutaneous Approach (ICD-10-PCS; 2017-10-28)
PROC: 0D758ZZ Dilation of Esophagus, Via Natural or Artificial Opening Endoscopic (ICD-10-PCS; 2017-10-28)
PROC: 0D978ZX Drainage of Stomach, Pylorus, Via Natural or Artificial Opening Endoscopic, Diagnostic (ICD-10-PCS; 2017-10-28)
PROC: 5A1955Z Respiratory Ventilation, Greater than 96 Consecutive Hours (ICD-10-PCS; principal; 2017-10-28 08:00)
PROC: 0B998ZZ Drainage of Lingula Bronchus, Via Natural or Artificial Opening Endoscopic (ICD-10-PCS; 2017-10-29)
PROC: 0B948ZZ Drainage of Right Upper Lobe Bronchus, Via Natural or Artificial Opening Endoscopic (ICD-10-PCS; 2017-10-29)
PROC: 0B988ZZ Drainage of Left Upper Lobe Bronchus, Via Natural or Artificial Opening Endoscopic (ICD-10-PCS; 2017-10-29)
PROC: 0B958ZZ Drainage of Right Middle Lobe Bronchus, Via Natural or Artificial Opening Endoscopic (ICD-10-PCS; 2017-10-29)
PROC: 0B978ZZ Drainage of Left Main Bronchus, Via Natural or Artificial Opening Endoscopic (ICD-10-PCS; 2017-10-29)
PROC: 0B9B8ZZ Drainage of Left Lower Lobe Bronchus, Via Natural or Artificial Opening Endoscopic (ICD-10-PCS; 2017-10-29)
PROC: 05HY33Z Insertion of Infusion Device into Upper Vein, Percutaneous Approach (ICD-10-PCS; 2017-11-04)
PROC: 0BJ08ZZ Inspection of Tracheobronchial Tree, Via Natural or Artificial Opening Endoscopic (ICD-10-PCS; 2017-11-07)
DX: J93.0 Spontaneous tension pneumothorax (principal); J69.0 Pneumonitis due to inhalation of food and vomit; J96.02 Acute respiratory failure with hypercapnia; J96.01 Acute respiratory failure with hypoxia; J45.901 Unspecified asthma with (acute) exacerbation; K22.2 Esophageal obstruction; K29.70 Gastritis, unspecified, without bleeding; I10 Essential (primary) hypertension; K21.9 Gastro-esophageal reflux disease without esophagitis; F32.9 Major depressive disorder, single episode, unspecified; D72.829 Elevated white blood cell count, unspecified; R13.10 Dysphagia, unspecified; D64.9 Anemia, unspecified; R53.81 Other malaise; J93.82 Other air leak

== ENCOUNTER 2017-11-20 20:52 | Inpatient (IN) | payer MEDICAID ==
[~2017-11-20] VITALS: Ht 165.1 cm; Wt 77.6 kg
--- NOTE | ~2017-11-20 | OP ---
PATIENT NAME: MATT NAIDU MEDICAL RECORD: [id number] :63 LOCATION:[facility] ADMISSION DATE:11/20/17 SURGEON: RAIMUNDO PEREIRA MD DATE OF OPERATION: 11/24/2017 PREOPERATIVE DIAGNOSES: 1. Epigastric and right upper quadrant abdominal pain. 2. Indwelling esophageal stent. 3. Achalasia. 4. Intractable vomiting. 5. Hematemesis. POSTOPERATIVE DIAGNOSES: 1. Epigastric and right upper quadrant abdominal pain. 2. Indwelling esophageal stent. 3. Achalasia. 4. Intractable vomiting. 5. Hematemesis. 6. Ulcerated area within the fundus of the stomach, likely a pressure ulcer from the distal end of the esophageal stent. PROCEDURES: 1. Esophagogastroduodenoscopy with endoscopic retrieval of a partially covered esophageal stent. 2. Endoscopic injection of 100 units of Botox into the lower esophageal sphincter. SURGEON: Raimundo Pereira MD SHOP WELDER: None. BLOOD LOSS: Minimal. ANESTHESIA: General. COMPLICATIONS: None. INDICATION: The risks, possible complications and alternatives to procedure were explained to the patient. He elected to proceed. The discussion specifically included but was not limited to bleeding requiring emergency reoperation, infection, endoscopic perforation and the probable need for an additional achalasia procedure. My plan is to perform a laparoscopic Heller myotomy and a Dada fundoplication once the inflammation decreases around the lower esophageal sphincter. OPERATIVE COURSE: The patient was conveyed to the operating room electively on 11/24/2017. General anesthesia was induced by the anesthesia staff. A bite block was inserted. A gastroscope was inserted into the mouth. It was advanced easily into the hypopharynx. The esophagus was easily intubated as were the stomach and duodenum. Upon withdrawal, retroflexed and angulus views were obtained. I grasped the proximal end of the stent which was in the lower third of the esophagus and was able to withdraw the stent out through the mouth with the use of endoscopic flexible rat tooth graspers. The stent was removed in its entirety. I then re-endoscoped the patient's esophagus and stomach. There was easy passage of the gastroscope through the lower esophageal sphincter. I OPERATIVE REPORT [id number] MATT NAIDU advanced a sclerotherapy needle. A combination of 100 units of therapeutic Botox were mixed with 5 cc of normal saline and 50 units were injected at 2 different sites within the lower esophageal sphincter through the sclerotherapy needle. The endoscope was then withdrawn under direct vision. The patient was then extubated and conveyed to post-anesthesia care unit where he was in stable condition. My plan is to start him on a clear liquid diet and then to get a barium swallow tomorrow. TRANSINT:[id number] Voice Confirmation ID: [id number] DOCUMENT ID: [id number] RAIMUNDO PEREIRA MD at 1816 CC: [id number] DICTATION DATE: 11/24/17 1405 MARKETING PROPOSAL COORDINATOR: 11/24/17 1518 ADM IN [facility] [address] [place] [id number]
--- NOTE | ~2017-11-20 | DS ---
PATIENT:MATT NAIDU :63 MEDICAL RECORD: [id number] DISCHARGE SUMMARY ADMISSION DATE: 11/20/17 DISCHARGE DATE: 11/26/17 PRINCIPAL DIAGNOSES: 1. Hematemesis and secondary epistaxis. 2. Chest pain due to achalasia and esophageal stent. 3. Achalasia. HOSPITAL COURSE: The patient was sent to the [place] Room [place] [facility] I contacted the ER there and stated that we will be happy to take Mr. Naidu back in transfer. He was transferred here. I removed the esophageal stent and then performed an endoscopic injection of 100 units of Botox into the lower esophageal sphincter. Postprocedurely, he was able to drink some liquids. A barium swallow revealed flow of dye from the esophagus into the stomach. The esophagus was markedly dilated. There was a "bird's beak" at the end of the esophagus, consistent with achalasia. The patient is complaining of chest pain, which is due to esophageal inflammation, not from reflux but from slow passage of liquids into the stomach. The patient can be dismissed back to the detention. My recommendation is a pureed diet with sips of liquids between bites. He needs to sit straight up or stand up while eating so the gravity will assist with passage of food through the lower esophageal sphincter. He is to drink nonacidic liquids. My recommendation is that he would have a GI cocktail twice a day. The formula for GI cocktail is 10 cc of water mixed with 10 cc of Mylanta mixed with 10 cc of viscous lidocaine. This will help with his chest pain. Once the esophageal inflammation has decreased, I would like to schedule him for a laparoscopic Heller myotomy and a Dada fundoplication. I have discussed this with Dr. Rincon. TRANSINT:[id number] Voice Confirmation ID: [id number] DOCUMENT ID: [id number] CC: Dr. Keith, [facility] TALYA PEREIRA MD at 1842 CC: DR. KIETH [id number] DICTATION DATE: 11/25/171653 CHOP SAW OPERATOR: 11/25/17 184 DIS IN 11/26/17 [facility] [address] [place] [address]
[~2017-11-20 20:52] MED LIST: ARTIFICIAL TEAR15 ML; CHLORTHALIDONE25 MG PO; COZAAR100 MG PO; LIPITOR20 MG PO; LOTREL 10-40 M1 EACH PO; METOPROLOL TAR100 M1; OMEPRAZOLE20 M1 PO; VENTOLIN HFA18 GM INH
[2017-11-21 01:32] VITALS: BP 125/75; BMI 28.6
[2017-11-21 01:42] LABS: BASOPHILS 0.3 % (0-2); EOSINOPHILS 3.9 % (0-7); HEMOGLOBIN 10.3 g/dL (13.5-17.5); IMMATURE GRANULOCYTES 0.3 % (0-5); LYMPHOCYTES 20.5 % (15-50); MCH 30.4 pg (26.0-34.0); MCHC 33.2 g/dL (31.0-37.0); MCV 91.4 fL (80.0-100.0); MEAN PLATELET VOLUME 9.6 fL (7.4-10.4); MONOCYTES 6.8 % (2-11); NEUTROPHILS 68.2 % (40-80); PLATELET COUNT 245 10x3/uL (130-400); RBC 3.39 10x6/uL (4.20-6.10); RDW 14.4 % (11.5-14.5); WBC 5.9 10x3/uL (4.8-10.8)
[2017-11-21 01:46] LABS: APTT 29.9 SECONDS (22.8-39.4); INR 1.17 (0.85-1.17); PROTIME 14.5 SECONDS (11.6-15.0)
[2017-11-21] MEDS ORDERED: MOBIC7.5 MG PO (02:02)
[2017-11-21] MEDS ORDERED: LOW DOSE ASPIRI81 M1 PO (02:05)
[2017-11-21] MEDS ORDERED: XOPENEX HFA15 GM INH (02:09)
[2017-11-21] MEDS ORDERED: CARAFATE1 G (02:10)
[2017-11-21] MEDS ORDERED: HYDRALAZINE HCL25 MG PO (02:11)
[2017-11-21 02:20] LABS: ALBUMIN 2.2 g/dL (3.4-5.0); ALKALINE PHOSPHATASE 54 U/L (46-116); ALT (SGPT) 37 U/L (10-68); BILIRUBIN - TOTAL 0.43 mg/dL (0.2-1.3); CALC OSMOLALITY 277 mosm/kg (275-300); CARBON DIOXIDE 24.7 mmol/L (21.0-32.0); CHLORIDE - SERUM 108 mmol/L (98-107); CREATININE - SERUM 0.9 mg/dL (0.6-1.3); GLUCOSE 95 mg/dL (74-106); PROTEIN - SERUM 6.2 g/dL (6.4-8.2); SODIUM 140 mmol/L (136-145); UREA NITROGEN 10 mg/dL (7-18); eGFR NON AFRICAN AMERICAN > 90 mL/min (90-120)
[2017-11-21 02:22] LABS: PRE-ALBUMIN 16.7 mg/dL (18.0-35.7)
[2017-11-21 04:46] VITALS: BP 146/80
[2017-11-21 09:20] VITALS: BP 103/68
[2017-11-21 14:38] VITALS: BP 103/55
[2017-11-21 15:04] VITALS: BMI 28.6
[2017-11-21 16:18] VITALS: Ht 165.1 cm; Wt 77.6 kg
[2017-11-21 17:07] VITALS: BP 122/59
[2017-11-21 20:42] VITALS: BP 117/70
[2017-11-22 00:28] VITALS: BP 124/74
[2017-11-22 04:10] VITALS: BP 161/75
[2017-11-22 08:30] VITALS: BP 149/80
[2017-11-22 12:10] LABS: HEPATITIS C ANTIBODY 0.1 (0.0-0.9)
[2017-11-22 12:35] VITALS: BP 143/76
[2017-11-22 22:18] VITALS: BP 119/75
[2017-11-23 04:10] VITALS: BP 125/70
[2017-11-23 07:52] VITALS: BP 138/79
[2017-11-23 08:06] LABS: BASOPHILS 0.2 % (0-2); EOSINOPHILS 6.6 % (0-7); HEMATOCRIT 27.2 % (42.0-54.0); HEMOGLOBIN 9.1 g/dL (13.5-17.5); IMMATURE GRANULOCYTES 0.3 % (0-5); LYMPHOCYTES 17.2 % (15-50); MCH 30.2 pg (26.0-34.0); MCHC 33.5 g/dL (31.0-37.0); MCV 90.4 fL (80.0-100.0); MEAN PLATELET VOLUME 9.6 fL (7.4-10.4); MONOCYTES 5.7 % (2-11); PLATELET COUNT 221 10x3/uL (130-400); RBC 3.01 10x6/uL (4.20-6.10); WBC 5.8 10x3/uL (4.8-10.8)
[2017-11-23 08:40] LABS: CALC OSMOLALITY 272 mosm/kg (275-300); CALCIUM 7.6 mg/dL (8.5-10.1); CARBON DIOXIDE 24.4 mmol/L (21.0-32.0); CHLORIDE - SERUM 106 mmol/L (98-107); CREATININE - SERUM 0.8 mg/dL (0.6-1.3); GLUCOSE 106 mg/dL (74-106); MAGNESIUM - SERUM 1.9 mg/dL (1.8-2.4); POTASSIUM - SERUM 3.6 mmol/L (3.5-5.1); SODIUM 138 mmol/L (136-145); UREA NITROGEN 4 mg/dL (7-18); eGFR NON AFRICAN AMERICAN > 90 mL/min (90-120)
[2017-11-23 12:16] VITALS: BP 135/76
[2017-11-23 15:30] VITALS: BP 125/73
[2017-11-23 21:48] VITALS: BP 127/61
[2017-11-24] VITALS (8 sets, daily range): BP systolic 105–136; BP diastolic 68–80
[2017-11-24 07:04] LABS: BASOPHILS 0.2 % (0-2); EOSINOPHILS 8.5 % (0-7); HEMATOCRIT 28.1 % (42.0-54.0); HEMOGLOBIN 9.4 g/dL (13.5-17.5); IMMATURE GRANULOCYTES 0.2 % (0-5); LYMPHOCYTES 23.5 % (15-50); MCH 30.3 pg (26.0-34.0); MCHC 33.5 g/dL (31.0-37.0); MCV 90.6 fL (80.0-100.0); MEAN PLATELET VOLUME 9.8 fL (7.4-10.4); MONOCYTES 8.7 % (2-11); NEUTROPHILS 58.9 % (40-80); RDW 14.2 % (11.5-14.5); WBC 4.6 10x3/uL (4.8-10.8)
[2017-11-24 07:09] LABS: PLATELET COUNT 280 10x3/uL (130-400)
[2017-11-24 07:12] LABS: CALC OSMOLALITY 277 mosm/kg (275-300); CALCIUM 7.9 mg/dL (8.5-10.1); CARBON DIOXIDE 26.6 mmol/L (21.0-32.0); CHLORIDE - SERUM 107 mmol/L (98-107); CREATININE - SERUM 0.9 mg/dL (0.6-1.3); GLUCOSE 90 mg/dL (74-106); MAGNESIUM - SERUM 2.2 mg/dL (1.8-2.4); POTASSIUM - SERUM 3.4 mmol/L (3.5-5.1); SODIUM 141 mmol/L (136-145); UREA NITROGEN 3 mg/dL (7-18); eGFR NON AFRICAN AMERICAN > 90 mL/min (90-120)
[2017-11-25] VITALS (7 sets, daily range): BP systolic 111–134; BP diastolic 64–82
[2017-11-26 04:05] VITALS: BP 107/56
[2017-11-26 07:52] VITALS: BP 129/83
== END 2017-11-26 15:00 | DRG 921 ==
LOC: D.MS 20:52
PROVIDERS: Surgery
PROC: 3E0G8GC Introduction of Other Therapeutic Substance into Upper GI, Via Natural or Artificial Opening Endoscopic (ICD-10-PCS; 2017-11-24)
PROC: 0DP58DZ Removal of Intraluminal Device from Esophagus, Via Natural or Artificial Opening Endoscopic (ICD-10-PCS; principal; 2017-11-24 09:30)
DX: K91.840 Postprocedural hemorrhage of a digestive system organ or structure following a digestive system procedure (principal); R04.0 Epistaxis; I10 Essential (primary) hypertension; F31.9 Bipolar disorder, unspecified; K21.9 Gastro-esophageal reflux disease without esophagitis; K22.0 Achalasia of cardia; K22.8 Other specified diseases of esophagus; K25.9 Gastric ulcer, unspecified as acute or chronic, without hemorrhage or perforation; Y83.8 Other surgical procedures as the cause of abnormal reaction of the patient, or of later complication, without mention of misadventure at the time of the procedure

== ENCOUNTER 2018-01-26 05:47 | Inpatient (IN) | payer MEDICAID ==
[~2018-01-26] VITALS: Ht 165.1 cm; Wt 83.6 kg
--- NOTE | ~2018-01-26 | OP ---
PATIENT NAME: MATT NAIDU MEDICAL RECORD: [id number] :63 LOCATION:[id number] ADMISSION DATE:01/26/18 SURGEON: TALYA PEREIRA MD DATE OF OPERATION: 01/26/2018 ASSISTANCE NOTE: PREOPERATIVE DIAGNOSES: 1. Hiatal hernia. 2. Gastroesophageal reflux. 3. Achalasia. I assisted Dr. JELANI Sparks with the laparoscopic hiatal hernia repair, the laparoscopic Heller myotomy and the laparoscopic Dada fundoplication. I was present during the entire operation. My participation in the operation included insertion of two of the trocars, on the left side, division of the short gastrics with the laparoscopic Harmonic scalpel. Some dissection up in the left mediastinum and between the left atrium and the esophagus. This included some blunt dissection with the long graspers as well as a dissection with the Harmonic scalpel. At no time was there any apparent esophageal injury during this procedure. I also utilized the Harmonic scalpel to clean the left emani of the diaphragm of the hernia sac. I assisted with removal of some of the hernia sac. I incised the phrenicoesophageal ligament on the left. I retracted the esophagus while he was performing the hiatal hernia repair. I manipulated the suture while he was performing the hiatal hernia closure. I irrigated and aspirated. I stabilized portion of the stomach while he was performing the Heller myotomy. I performed part of the myotomy as well utilizing the hook cautery. I had performed the initial EGD, which was performed with CO2 and this was done before the abdominal portion of the operation had been performed. During the Heller myotomy with the EGD scope that was still in place and the light had been turned off, I went and performed esophagoscopy utilizing the gastroscope and CO2 insufflation. We were able to see where the pinch point was and where the myotomy was necessary. It was further up on the esophagus and either one of us had really anticipated. This guided us in our myotomy, which was complete at the end of the procedure. We also performed a leak test by insufflating CO2 while the left upper quadrant was submerged in saline. There was no bubbling and therefore no evidence of a gastric or esophageal full thickness injury. I then assisted with the Dada fundoplication. I manipulated and retracted the cardia of the stomach as well as the fundus of the stomach and assisted with placement of the Dada fundoplication patch over the myotomy. I assisted with retraction of tissues as well as with retraction of the suture while Dr. Sparks performed the Dada fundoplication. I initially placed the Avril retractor. I also removed the Avril retractor. I ran the camera while he closed while he closed the fascia at one of the trocar sites and I closed the fascia at another trocar site. I then closed all of the skin incisions with Monocryl. Sterile dressings were applied. TRANSINT:[id number] Voice Confirmation ID: [id number] DOCUMENT ID: [id number] OPERATIVE REPORT [id number] MATT NAIDU, TALYA GRIFFIN at [id number] CC: STEVE SARGENT MD, MICHOACANO DEE MD, VIVEK SPARKS MD and [id number] L DICTATION DATE: 01/27/18 1655 [place] CUTTER: 01/27/18 1741 DIS IN 01/29/18 [id number] [place] [id number]
[~2018-01-26 05:47] MED LIST changes: +CARAFATE1 G; +HYDRALAZINE HCL25 MG PO; +LOW DOSE ASPIRI81 M1 PO; +MOBIC7.5 MG PO; +XOPENEX HFA15 GM INH
[2018-01-26 09:31] VITALS: BP 132/92; BMI 30.8
[2018-01-26 10:32] LABS: HEMATOCRIT 35.7 % (42.0-54.0); MCH 29.6 pg (26.0-34.0); MCHC 33.6 g/dL (31.0-37.0); MCV 87.9 fL (80.0-100.0); RBC 4.06 10x6/uL (4.20-6.10); RDW 13.5 % (11.5-14.5); WBC 4.7 10x3/uL (4.8-10.8)
[2018-01-26 18:14] VITALS: BP 146/86
[2018-01-26 20:00] VITALS: BP 155/103
[2018-01-27 06:18] VITALS: BP 101/70
[2018-01-27 06:39] LABS: BASOPHILS 0.1 % (0-2); EOSINOPHILS 0 % (0-7); HEMATOCRIT 36.4 % (42.0-54.0); HEMOGLOBIN 12.1 g/dL (13.5-17.5); IMMATURE GRANULOCYTES 0.3 % (0-5); LYMPHOCYTES 4.6 % (15-50); MCH 29.2 pg (26.0-34.0); MCHC 33.2 g/dL (31.0-37.0); MCV 87.7 fL (80.0-100.0); MEAN PLATELET VOLUME 9.8 fL (7.4-10.4); MONOCYTES 4.4 % (2-11); NEUTROPHILS 90.6 % (40-80); PLATELET COUNT 226 10x3/uL (130-400); RBC 4.15 10x6/uL (4.20-6.10); RDW 13.5 % (11.5-14.5)
[2018-01-27 06:58] LABS: WBC 11.9 10x3/uL (4.8-10.8)
[2018-01-27 07:01] LABS: ALBUMIN 2.8 g/dL (3.4-5.0); ANION GAP 14.6 mmol/L (8-16); BILIRUBIN - TOTAL 0.36 mg/dL (0.2-1.3); CALCIUM 7.7 mg/dL (8.5-10.1); CARBON DIOXIDE 25.9 mmol/L (21.0-32.0); CREATININE - SERUM 1.2 mg/dL (0.6-1.3); POTASSIUM - SERUM 4.5 mmol/L (3.5-5.1); PROTEIN - SERUM 6.7 g/dL (6.4-8.2)
[2018-01-27 07:37] VITALS: BP 174/101; Ht 165.1 cm; Wt 83.6 kg
[2018-01-27 10:30] VITALS: BP 126/69
[2018-01-27 13:24] VITALS: BP 119/80
[2018-01-28] VITALS: BP 161/86
[2018-01-28 04:00] VITALS: BP 121/80
[2018-01-28 09:56] VITALS: BP 164/110
[2018-01-28 13:28] VITALS: BP 140/79
[2018-01-28 16:40] VITALS: BP 126/84
[2018-01-28 20:00] VITALS: BP 140/92
[2018-01-29 06:25] VITALS: BP 141/94
[2018-01-29 10:42] VITALS: BP 145/90
[2018-01-29 15:42] VITALS: BP 152/89
== END 2018-01-29 18:02 | DRG 328 ==
LOC: D.OPS 05:47 → D.MS 17:48 → D.OPS 17:49 → D.MS 01-29 18:02
PROVIDERS: Anesthesiology; Surgery
PROC: 0D844ZZ Division of Esophagogastric Junction, Percutaneous Endoscopic Approach (ICD-10-PCS; principal; 2018-01-26 12:30)
PROC: 0BQT4ZZ Repair Diaphragm, Percutaneous Endoscopic Approach (ICD-10-PCS; 2018-01-26 12:30)
DX: K22.0 Achalasia of cardia (principal); K44.9 Diaphragmatic hernia without obstruction or gangrene; K21.9 Gastro-esophageal reflux disease without esophagitis